=== PATIENT | male | born 1990 | race Caucasian/White ===

== ENCOUNTER 2020-04-03 19:55 | Emergency (ER) | payer OTHER ==
[~2020-04-03] VITALS: Ht 180.3 cm; Wt 95.3 kg
[2020-04-03 20:28] VITALS: Ht 180.3 cm; Wt 95.3 kg
[2020-04-03 22:01] LABS: BASOPHIL % 0.1 % (0-2); PLATELET COUNT 277 x10^3mcL (130-400); RED CELL DISTRIBUTION WIDTH 12.4 % (11.5-14.5)
[2020-04-03 22:09] LABS: CALCIUM 9.4 mg/dL (8.5-10.1); CHLORIDE SERUM 96 mmol/L (98-107); GFR1 > 60 mL/min; GLUCOSE SERUM 98 mg/dL (74-106); POTASSIUM SERUM 4.1 mmol/L (3.5-5.1); SODIUM SERUM 133 mmol/L (136-145)
[2020-04-03 22:13] LABS: ALBUMIN 4.6 g/dL (3.4-5.0); ALKALINE PHOSPHATASE 120 U/L (46-116); ALT/SGPT 110 U/L (16-63); AST/SGOT 23 U/L (15-37); BILIRUBIN TOTAL 0.8 mg/dL (0.20-1.00); LIPASE 83 IU/L (73-393)
[2020-04-03 22:18] LABS: TOTAL PROTEIN, SERUM 8.7 g/dL (6.4-8.2)
[2020-04-03 23:54] LABS: microscopic required? NO
[2020-04-04 00:06] VITALS: BP 166/92
[2020-04-04 00:16] LABS: UA SPECIFIC GRAVITY 1.025 (1.005-1.035); urine erythrocyte NEGATIVE (NEGATIVE)
== END 2020-04-04 00:07 | disposition home or self-care (01) ==
LOC: ED 19:55
PROVIDERS: Emergency Medicine
DX: K29.20 Alcoholic gastritis without bleeding (principal); F14.10 Cocaine abuse, uncomplicated
CPT/HCPCS: J2405; J3490; J7030